=== PATIENT | female | born 1990 | race American Indian/Alaskan Native ===

== ENCOUNTER 2016-12-26 13:16 | Emergency (ER) | payer SELFPAY ==
[2016-12-26 13:29] VITALS: BP 138/56
[2016-12-26] MEDS ORDERED: TYLENOL PO ONE (13:29)
[2016-12-26] MEDS ORDERED: TYLENOL ONE (13:33)
--- NOTE | 2016-12-26 14:01 | XRay Report ---
RIGHT HAND, 3 views: History: Hand injury. The bony architecture is intact. Bony alignment is normal. No soft tissue abnormalities are seen. The joint spaces appear preserved. A bandage overlies the right thumb. IMPRESSION: Unremarkable right hand.
--- NOTE | 2016-12-26 16:06 | Emergency Department Report ---
ED Laceration HPI - HPI Chief Complaint: Laceration/Recheck/Suture Stated Complaint: LACERATION TO RIGHT HAND Time Seen by Provider: 12/26/16 16:03 Occurred When: Today Location: Upper Extremity Severity: moderate Tetanus Status: Up to Date Laceration Symptoms: Yes Pain, No Foreign Body Sensation, No Numbness, No Weakness Other History: 26-year-old female presents to ED complaining of right hand pain times today. Patient states she was caught in some hamburger meat with a steak knife when the steak knife slipped and cut her on her right thumb. Patient states bleeding stabilized. Patient states she is up-to-date on her tetanus booster. Denies any other problems. ED Review of Systems ROS: Stated complaint: LACERATION TO RIGHT HAND Other details as noted in HPI Constitutional: denies: chills, fever Eyes: denies: eye pain, eye discharge, vision change ENT: denies: ear pain, throat pain Respiratory: denies: cough, shortness of breath, wheezing Cardiovascular: denies: chest pain, palpitations Endocrine: no symptoms reported Gastrointestinal: denies: abdominal pain, nausea, diarrhea Genitourinary: denies: urgency, dysuria, discharge Musculoskeletal: denies: back pain, joint swelling, arthralgia Skin: denies: rash, lesions Neurological: denies: headache, weakness, paresthesias Psychiatric: denies: anxiety, depression Hematological/Lymphatic: denies: easy bleeding, easy bruising ED Past Medical Hx - Past Medical History Previous Medical History?: No - Surgical History Past Surgical History?: No - Social History Smoking Status: Current Every Day Smoker Substance Use Type: Alcohol - Medications Home Medications: Home Medications Medication Instructions Recorded Confirmed Last Taken Type Cephalexin [Keflex] 500 mg PO BID #14 capsule 12/26/16 Unknown Rx Ibuprofen [Motrin] 800 mg PO Q8HR PRN #20 tablet 12/26/16 Unknown Rx Laceration Physical Exam - Exam General: Vital signs noted. No distress. Alert and acting appropriately. ED Course Vital Signs 12/26/16 13:25 Temperature 97.6 F Pulse Rate 96 H Respiratory 16 Rate Blood Pressure 138/56 O2 Sat by Pulse 95 Oximetry - Laceration /Wound Repair Right Finger Wound Location: upper extremity Wound Length (cm): 1 Wound's Depth, Shape: superficial, linear Wound Explored: no foreign body removed Irrigated w/ Saline (ccs): 100 Betadine Prep?: Yes Anesthesia: Lidocaine w/ Epi Volume Anesthetic (ccs): 3 Wound Repaired With: sutures Suture Size/Type: 3:0, proline Number of Sutures: 3 Layer Closure?: No ED Medical Decision Making - Radiology Data Radiology results: report reviewed, image reviewed - Medical Decision Making 26-year-old female presented finger laceration The 1cm laceration wound was prepped and draped in sterile fashion. Anesthesia was achieved with 3mL of 1% lidocaine. The wound was irrigated with 100cc NS and explored. There were no foreign bodies The wound was reapproximated in 1 layer with 3 sutures suing with three 4-0 vicryl sutures in the dermis with interrupted sutures percutaneously. There was excellent reapproximation of the wound edges. The patient tolerated the procedure without complication Vital signs are normal patient is in no acute distress. Critical care attestation.: If time is entered above; I have spent that time in minutes in the direct care of this critically ill patient, excluding procedure time. ED Disposition Clinical Impression: Laceration of finger of right hand without foreign body without damage to nail Qualifiers: Encounter type: initial encounter Finger: thumb Qualified Code(s): S61.011A - Laceration without foreign body of right thumb without damage to nail, initial encounter Disposition: DC-01 TO HOME OR SELFCARE Is pt being admited?: No Does the pt Need Aspirin: No Condition: Stable Instructions: Finger Laceration (ED), Suture Care (ED), Absorbable Suture Care (ED) Prescriptions: Cephalexin [Keflex] 500 mg PO BID #14 capsule Ibuprofen [Motrin] 800 mg PO Q8HR PRN #20 tablet PRN Reason: Pain Referrals: PRIMARY CARE,MD [Primary Care Provider] - 3-5 Days Forms: Accompanied Note, Work/School Release Form(ED) Time of Disposition: 17:45
[2016-12-26] MEDS ORDERED: NORCO 5/325 PO ONE (16:38)
[2016-12-26] MEDS ORDERED: TRIPLE ANTIBIOTIC TP ONE (16:38)
[2016-12-26] MEDS ORDERED: NACL 0.9% 500 ML IR ONE (16:52)
[2016-12-26] MEDS ORDERED: NACL 0.9% IR ONE (16:57)
== END 2016-12-26 18:11 | disposition home or self-care (01) ==
LOC: ED 13:16
DX: S61.011A Laceration without foreign body of right thumb without damage to nail, initial encounter (principal); W26.0XXA Contact with knife, initial encounter; Y93.9 Activity, unspecified; Y99.9 Unspecified external cause status; Y92.89 Other specified places as the place of occurrence of the external cause; F17.200 Nicotine dependence, unspecified, uncomplicated
CPT/HCPCS: 99283; A6250